=== PATIENT | male | born 1955 | race Native Hawaiian/Other Pacific Islander ===

== ENCOUNTER 2021-09-15 11:53 | Emergency (ER) | payer BC ==
[~2021-09-15] VITALS: Ht 182.9 cm; Wt 110.2 kg
[~2021-09-15 11:53] MED LIST: ASPIR-LOW81 MG PO; CARVEDILOL3.125 MG PO; FOLIC ACID1 MG PO; IBUPROFEN200 M1 PO; LIPITOR40 MG PO; LISINOPRIL5 MG PO; METFORMIN HCL500 MG PO; METHOTREXA25 MG/1 M1 INJ; PLAQUENIL200 MG PO; PREDNISONE1 MG PO; PREDNISONE10 MG PO; SIMVASTATIN20 MG PO; TYLENOL325 MG PO; XELJANZ5 MG PO
[2021-09-15] MEDS ORDERED: FARXIGA10 MG PO (12:28)
[2021-09-15] MEDS ORDERED: ENTRESTO 24 MG1 EACH PO (12:28)
[2021-09-15] MEDS ORDERED: METOPROLOL SUCC25 MG PO (12:29)
[2021-09-15] MEDS ORDERED: SPIRONOLACTONE25 MG PO (12:29)
[2021-09-15] MEDS ORDERED: METFORMIN HCL500 M1 PO (12:29)
[2021-09-15] MEDS ORDERED: PREDNISONE5 MG PO (12:29)
[2021-09-15] MEDS ORDERED: PREDNISONE20 MG PO (13:35)
[2021-09-15] MEDS ORDERED: HYDROCODON-ACE1 EA11 PO (13:35)
[2021-09-15] MEDS ORDERED: NEURONTIN300 MG PO (13:35)
== END 2021-09-15 16:00 | disposition home or self-care (01) ==
LOC: ED 11:53
DX: M54.42 Lumbago with sciatica, left side (principal); I11.0 Hypertensive heart disease with heart failure; I50.9 Heart failure, unspecified; Z87.891 Personal history of nicotine dependence; Z88.5 Allergy status to narcotic agent; Z79.899 Other long term (current) drug therapy; Z79.84 Long term (current) use of oral hypoglycemic drugs; Z79.82 Long term (current) use of aspirin; Z79.52 Long term (current) use of systemic steroids
CPT/HCPCS: 73560; 96372; 99283-25; A9270; J1885; J7512

== ENCOUNTER 2023-05-14 15:07 | Observation (INO) | payer BC, MEDICARE ==
[~2023-05-14] VITALS: Ht 182.9 cm; Wt 99.7 kg
[~2023-05-14 15:07] MED LIST changes: +ADULT LOW DOSE81 MG PO; -ASPIR-LOW81 MG PO; +ATORVASTATIN CA20 MG PO; +ENTRESTO 24 MG1 EACH PO; +FARXIGA10 MG PO; +HYDROCODON-ACE1 EA11 PO; +METFORMIN HCL500 M1 PO; +METOPROLOL SUCC25 MG PO; +NEURONTIN300 MG PO; +PREDNISONE20 MG PO; +PREDNISONE5 MG PO; +SPIRONOLACTONE25 MG PO
[2023-05-14] MEDS ORDERED: PANTOPRAZOLE SO40 MG PO (16:21)
[2023-05-14 18:18] VITALS: BP 145/85
--- NOTE | 2023-05-14 19:10 | NUR ---
SHIFT REPORT RECEIVED FROM DAYSHIFT KATELYN OSBORNE AT BEDSIDE. pt AWAKE AND RECENTLY BACK FROM BATHROOM. pt EATING DINNER FROM [facility], STATES, "I DON'T KNOW WHY I'M HERE". pt EDUCATED HE'S BEING OBSERVED OVERNIGHT. NO NEEDS OR CONCERNS VERBALZED, GIRLFRIEND IN ROOM. CALL LIGHT IN REACH. BOARD UPDATED.
[2023-05-14 20:00] VITALS: BP 122/78
--- NOTE | 2023-05-14 20:15 | NUR ---
ASSESSMENT COMPLETE, NO SCHEDULED MEDS. pt A/O, DENEIS PAIN AND NAUSEA. pt EDUCATED ON CURRENT DIET ORDERS, SODA AND CANDY REMOVED FROM BEDSIDE, pt GIVEN FRESH ICE WATER. VSS, FAMILY IN ROOM.
--- NOTE | 2023-05-14 21:30 | NUR ---
accucheck result of 164, pt hx diabetes. will continue to monitor.
--- NOTE | 2023-05-14 22:20 | NUR ---
THIS CNC PROGRAMMER ASSISTED PATIENT TO THE BATHROOM. HELPED. THIS CNC PROGRAMMER WENT OUT TO GET WALKER. PATIENT IS ALREADY BACK IN BED. PATIENT STATED "I WANT TO DO MYSELF MUCH POSSIBLE AND I UNDERSTAND TO CALL THE STAFF WHEN I GET UP FOR SAFETY REASON". ICE WATER FOR AND GRAPE JUICE FOR THE PATIENT PROVIDED.
--- NOTE | 2023-05-14 22:55 | NUR ---
SBA TO BATHROOM USING WALKER. PATIENT STAYED IN THE TOILET FOR 10MINS. AND DID HAVE BM LARGE SOFT ACCORDING TO PATIENT. PATIENT IS BACK IN BED. DENIES FURTHER NEEDS AT THIS TIME. IN THE ROOM.
--- NOTE | 2023-05-14 23:03 | NUR ---
rounded on pt, pt awake and in the restroom. no needs or concerns verbalized, will continue to monitor.
--- NOTE | 2023-05-15 00:25 | NUR ---
ROUNDED ON pt, pt RESTING QUIETLY IN BED WITH EYES CLOSED. ON RA, RR EVEN AND UNLABORED. AUDIBLE SNORING NOTED. BED ALARM ON AND CALL LIGHT IN REACH. FAMILY REMAINS IN ROOM.
--- NOTE | 2023-05-15 01:00 | NUR ---
IN ROOM TO COLLECT VS AND COMPLETE ASSESSMENT. pt AWOKE EASILY TO VOICE, VSS. pt REPORTS MINIMAL HEADACHE REMAINS ALONG WITH BLURRED VISION, UNCHANGED SINCE START OF SHIFT. pt DENEIS DIZZINESS AT REST. pt A/OX4, CALL LIGHT IN REACH. ACCUCHECK COMPLETED TO ENSURE BLOOD SUGARS DON'T DROP IN THE NIGHT. WILL CONTINUE TO MONITOR.
[2023-05-15 01:12] VITALS: BP 125/69
--- NOTE | 2023-05-15 04:15 | NUR ---
CALL LIGHT ANSWERED. SBA. PATIENT WAS UP TO USE THE BATHROOM USING WALKER. HELPED. PATIENT IS BACK IN BED. ICE WATER REFILLED. DENIES FURTHER NEEDS AT THIS TIME.
--- NOTE | 2023-05-15 04:45 | NUR ---
in room to round on pt, when asked how pt is doing he states, "i'm feeling a lot better". pt reports dizziness w/ ambulation is improved alsong with his headache. pt also reports his blurry vision is "a lot better", pt currently denies blurry vision when asked. pt has been calling appropriately, call light in reach and in room.
[2023-05-15 05:01] VITALS: BP 125/77
--- NOTE | 2023-05-15 05:02 | NUR ---
AM VS AND I&O'S COLLECTED ADN STABLE. NO ADDITIONAL NEEDS OR CONCERNS VERBALIZED, CALL LIGHT IN REACH.
--- NOTE | 2023-05-15 07:15 | NUR ---
REPORT RECEIVED FROM KATELYN LAUREANO. PT LAYING IN BED SEMI-FOWLERS. EYES CLOSED. RR EVEN AND UNLABORED. NO NEEDS IDENTIFIED AT THIS TIME. CALL LIGHT IN REACH.
--- NOTE | 2023-05-15 08:27 | NUR ---
IN TO ADMINISTER MEDICATION, SEE MAR. PT TAKES PO MEDICATIONS WITH NO ISSUES. PT REPORTING PAIN 6/10 IN LEFT KNEE. PT STATES "I AM HAVING SURGERY ON IT ON TO REPLACE IT." ASSESSMENT COMPLETE. LUNG SOUNDS CLEAR. BOWEL TONES ACTIVE. PT A&O TO ALL. NO ARM OR LEG DRIFT NOTED. PT DENIES ANY NUMBNESS OR TINGLING AT THIS TIME. PT DENIES VISUAL CHAGES OR DISTRUBANCES AT THIS TIME. EQUAL CARD SELLER STRENGTH NOTED WHEN PT SQUEESES THIS RNs FINGERS. PT DENIES ANY OTHER NEEDS AT THIS TIME. CALL LIGHT IN REACH. IN ROOM.
[2023-05-15 09:12] VITALS: BP 137/83
--- NOTE | 2023-05-15 11:00 | NUR ---
Spoke with Tarsha. He states he lives in [place] with his . 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 He states he has tingling symptoms in his arms, this has resolved. He states his while will provide any help needed,but does not feel he will need help. They both drive, no issues getting in or out of the home. He states he make too much money for food stamps and he does not need anyway. They have 8 grown children, they all will help he if needed. Pt will dc to home today. Denies needs.
--- NOTE | 2023-05-15 11:45 | NUR ---
IN TO ROUND ON PT. PT REPORTING PAIN 3/10 IN LEFT KNEE. OFFERED PT ICE/HOT PACK. PT REQUESTING ICE PACK. ICE PACK PROVIDED. WATER PROVIDED. PT DENIES ANY OTHER NEEDS AT THIS TIME. CALL LIGHT IN REACH.
--- NOTE | 2023-05-15 11:57 | NUR ---
FAMILY MEMBER IN ROOM INDICATED I SHOULD ENTER. PT SLEEPING ON BED. FAMILY MEMBER UNABLE TO VISIT DUE TO PHONE CALL. LEFT GUIDEPOST AND BUSINESS CARD. PRAYED SILENTLY FOR HEALING.
--- NOTE | 2023-05-15 12:08 | NUR ---
medications reconciled using pharmacy records and patient/ interview
--- NOTE | 2023-05-15 12:43 | NUR ---
IN TO ROUND ON PT. PT SITTING UP IN BED EATING LUNCH. PT DENIES ANY NEEDS AT THIS TIME. CALL LIGHT IN REACH. IN ROOM.
[2023-05-15] MEDS ORDERED: ADULT LOW DOSE81 MG PO (12:47)
[2023-05-15] MEDS ORDERED: LIPITOR10 MG PO (12:48)
[2023-05-15 13:39] VITALS: BP 135/90
--- NOTE | 2023-05-15 13:39 | NUR ---
IN ROOM. PT UP IN BED. PT DRESSED IN OWN CLOTHES. DC PAPERWORK AND TEACHING PROVIDED. PT VERBALIZES UNDERSTANDING. ALL QUESTIONS ANSWERED. HANDED PT DC PACKET. IV REMOVED WNL. VITALS COMPLETE. APPOINTMENT CARD PROVIDED FOR PT. PHARMACY IN ROOM TO GO OVER MEDICATION. PT WHEELED OUT IN WHEELCHAIR BY KARLEE TOMAS.
== END 2023-05-15 14:05 | disposition home or self-care (01) ==
LOC: ED 15:07 → MS 15:09
PROVIDERS: ADMIT Internal Medicine; ATTEND Internal Medicine
DX: R42 Dizziness and giddiness (principal); I50.9 Heart failure, unspecified; R51.9 Headache, unspecified; I11.0 Hypertensive heart disease with heart failure; E11.9 Type 2 diabetes mellitus without complications; Z87.891 Personal history of nicotine dependence; Z88.5 Allergy status to narcotic agent
CPT/HCPCS: 36415; 70450; 70496; 70498; 70553; 80048; 80053; 85025; 85610; 85730; 99284 25; A9270; A9579; G0378; J2405; Q9967